=== PATIENT | male | born 2000 | race Two or more races ===

== ENCOUNTER 2021-01-18 17:18 | Emergency (ER) | payer OTHER ==
[2021-01-18] MEDS ORDERED: Sodium Chloride 0.9% 10 ML Syringe FLUSH PRN (17:51)
--- NOTE | 2021-01-18 18:24 | EDM.PDOC ---
ED HPI GENERAL MEDICAL PROBLEM - General Chief Complaint: Gastrointestinal Problem Stated Complaint: POSS ATE BAD CHICKEN Time Seen by Provider: 01/18/21 17:44 Source of Information: Reports: Patient, RN Notes Reviewed History Limitations: Reports: No Limitations - History of Present Illness INITIAL COMMENTS - FREE TEXT/NARRATIVE: Patient is a 21-year-old male who presents to the ER for the evaluation of possible food poisoning. Patient notes he went to lunch yesterday, and had chicken, and about 2 hours after eating the chicken he developed a pain in his stomach with associated nausea/vomiting/diarrhea. Notes that he has had a few episodes of each for the last 24 hours or so. He states also that he has had a fever or elevated temperature but has not checked his temperature at home. He has had no cough or shortness of breath. He has not been around anyone else has been sick that he is aware of. He has been able to eat and drink okay, but again has had nausea/vomiting/diarrhea. - Related Data Allergies Allergy/AdvReac Type Severity Reaction Status Date / Time No Known Allergies Allergy Verified 01/18/21 17:40 Home Meds: Home Meds . [No Known Home Meds] 01/18/21 [History] Past Medical History - Past Health History Medical/Surgical History: Denies Medical/Surgical History Social & Family History - Family History Family Medical History: No Pertinent Family History - Tobacco Use Tobacco Use Status *Q: Current Every Day Tobacco User Years of Tobacco use: 2 Packs/Tins Daily: 0.5 - Caffeine Use Caffeine Use: Reports: Energy Drinks - Recreational Drug Use Recreational Drug Use: No ED ROS GENERAL - Review of Systems Review Of Systems: Comprehensive ROS is negative, except as noted in HPI. ED EXAM, GI/ABD - Physical Exam Exam: See Below Exam Limited By: No Limitations General Appearance: Alert, WD/WN, No Apparent Distress Cardiovascular: Normal Peripheral Pulses, Regular Rate, Rhythm GI/Abdominal Exam: Normal Bowel Sounds, Soft, Non-Tender, No Distention, No Mass Neurological: Alert, Oriented, Normal Cognition, No Motor/Sensory Deficits Psychiatric: Normal Affect, Normal Mood Skin Exam: Warm, Dry, Intact, Normal Color, No Rash Course - Vital Signs Last Recorded V/S: Last Vital Signs Temp 97.9 F 01/18/21 17:36 Pulse 90 01/18/21 17:36 Resp 14 01/18/21 17:36 BP 120/69 01/18/21 17:36 Pulse Ox 100 01/18/21 17:36 - Orders/Labs/Meds Orders: Active Orders 24 hr Category Date Time Status Peripheral IV Care [RC] . DIRECTED Care 01/18/21 17:51 Ordered Sodium Chloride 0.9% [Saline Flush] Med 01/18/21 17:51 Ordered 10 ml FLUSH ASDIRECTED PRN Peripheral IV Insertion Adult [OM.PC] Routine Oth 01/18/21 17:51 Ordered Medication Orders Sodium Chloride (Sodium Chloride 0.9% 10 Ml Syringe) 10 ml FLUSH ASDIRECTED PRN PRN Reason: Keep Vein Open Last Admin: 01/18/21 18:48 Dose: 10 ml Documented by: YANET Labs: Laboratory Tests 01/18/21 01/18/21 01/18/21 Range/Units 18:10 18:10 18:10 WBC 5.68 (4.23-9.07) K/mm3 RBC 5.07 (4.63-6.08) M/mm3 Hgb 15.4 (13.7-17.5) gm/dl Hct 45.0 (40.1-51.0) % MCV 88.8 (79.0-92.2) fl MCH 30.4 (25.7-32.2) pg MCHC 34.2 (32.2-35.5) g/dl RDW Std Deviation 38.3 (35.1-43.9) fL Plt Count 218 (163-337) K/mm3 MPV 10.2 (9.4-12.3) fl Neut % (Auto) 68.1 H (34.0-67.9) % Lymph % (Auto) 18.5 L (21.8-53.1) % [place] % (Auto) 12.1 (5.3-12.2) % Eos % (Auto) 0.7 L (0.8-7.0) Baso % (Auto) 0.4 (0.1-1.2) % Neut # (Auto) 3.87 (1.78-5.38) K/mm3 Lymph # (Auto) 1.05 L (1.32-3.57) K/mm3 [place] # (Auto) 0.69 (0.30-0.82) K/mm3 Eos # (Auto) 0.04 (0.04-0.54) K/mm3 Baso # (Auto) 0.02 (0.01-0.08) K/mm3 Sodium 141 (136-145) mEq/L Potassium 3.4 L (3.5-5.1) mEq/L Chloride 105 (98-107) mEq/L Carbon Dioxide 33 H (21-32) mEq/L Anion Gap 6.4 (5-15) BUN 18 (7-18) mg/dL Creatinine 1.1 (0.7-1.3) mg/dL Est Cr Clr Drug Dosing TNP Estimated GFR (MDRD) > 60 (>60) mL/min BUN/Creatinine Ratio 16.4 (14-18) Glucose 97 (70-99) mg/dL Calcium 8.6 (8.5-10.1) mg/dL Total Bilirubin 0.6 (0.2-1.0) mg/dL AST 25 (15-37) U/L ALT 39 (16-63) U/L Alkaline Phosphatase 89 (46-116) U/L Total Protein 7.0 (6.4-8.2) g/dl Albumin 3.9 (3.4-5.0) g/dl Globulin 3.1 gm/dL Albumin/Globulin Ratio 1.3 (1-2) SARS-CoV-2 RNA (JAYLAN) Negative (NEGATIVE) Meds: Medications Generic Name Dose Route Start Last Admin Trade Name Freq PRN Reason Stop Dose Admin Sodium Chloride 10 ml 01/18/21 17:51 01/18/21 18:48 Sodium Chloride 0.9% 10 Ml Syringe FLUSH 10 ml ASDIRECTED PRN Administration Keep Vein Open - Re-Assessments/Exams Free Text/Narrative Re-Assessment/Exam: 01/18/21 18:46 Patient presents to the ER for evaluation of possible food poisoning, we will also go ahead and check for coronavirus, as this has been causing a GI disturbance as well. Basic labs to be obtained. 01/18/21 19:26 Laboratory evaluation is unremarkable, COVID-19 screen is negative. Patient notes he did miss work today, and is in need of a work note. Departure - Departure Time of Disposition: 19:26 Disposition: Home, Self-Care 01 Condition: Good Clinical Impression: Food poisoning - Discharge Information *PRESCRIPTION DRUG MONITORING PROGRAM REVIEWED*: No *COPY OF PRESCRIPTION DRUG MONITORING REPORT IN PATIENT JANET: No Instructions: Food Poisoning, [id number] Referrals: PCP,None [Primary Care Provider] - Forms: ED Department Discharge, ED Return to Work/School Form Additional Instructions: Your evaluated in the ER today for your possible food poisoning. Laboratory evaluation done at today's visit demonstrated no focal abnormalities, you were screened for COVID-19, and this was negative. The screening for COVID- 19 was done, because this newer strain seems to be causing some GI disturbance. Since these issues started yesterday, after you ate some chicken at lunch, is highly likely this is a foodborne illness, this will have to run its course and should get better in a day or 2. Antibiotics are not indicated at this moment, unless your symptoms persist for longer than 72 hours. Continue to increase your oral fluid intake, you may eat a bland diet over the next 24 to 48 hours, to see if this helps relieve some of your symptoms. You may return to work tomorrow with no restrictions. Do not hesitate to return to the ER at any time if his symptoms should change or worsen. Sepsis Event Note (ED) - Evaluation Sepsis Screening Result: Possible Sepsis Risk - Focused Exam Vital Signs: Vital Signs Temp Pulse Resp BP Pulse Ox 01/18/21 17:36 97.9 F 90 14 120/69 100 - My Orders Last 24 Hours: My Active Orders 01/18/21 17:51 Peripheral IV Care [RC] . DIRECTED Sodium Chloride 0.9% [Saline Flush] 10 ml FLUSH ASDIRECTED PRN Peripheral IV Insertion Adult [OM.PC] Routine - Assessment/Plan Last 24 Hours: My Active Orders 01/18/21 17:51 Peripheral IV Care [RC] . DIRECTED Sodium Chloride 0.9% [Saline Flush] 10 ml FLUSH ASDIRECTED PRN Peripheral IV Insertion Adult [OM.PC] Routine
== END 2021-01-18 19:37 | disposition home or self-care (01) ==
LOC: JD.ED 17:18
DX: T78.1XXA Other adverse food reactions, not elsewhere classified, initial encounter (principal); Z72.0 Tobacco use; Z20.822 Contact with and (suspected) exposure to COVID-19
CPT/HCPCS: 36415; 80053; 85025; 99283; 99284; U0002